=== PATIENT | female | born 1945 | race Caucasian/White ===

== ENCOUNTER 2022-08-05 12:00 | Emergency (ER) | payer OTHER ==
[2022-08-05] MEDS ORDERED: NA CHLORIDE 0.9% 1,000 ML ONE (12:36)
[2022-08-05 12:58] LABS: Absolute Lymphocytes (CBC) 1.3 K/uL (0.7-4.9); Hematocrit 44.4 % (36.0-45.0); MCV 91.1 fL (80-100); MPV 9.1 fL (7.6-11.3); RBC Red Blood Cell Count 4.88 M/uL (3.86-4.86)
[2022-08-05 13:25] LABS: Albumin 3.8 g/dL (3.4-5.0); Bilirubin Total 0.6 mg/dL (0.2-1.0); Magnesium 2.4 mg/dL (1.6-2.4); Potassium 4.4 mmol/L (3.5-5.1); Protein, Total 7.1 g/dL (6.4-8.2); Troponin High Sensitivity 3.3 pg/mL (<58.9)
--- NOTE | 2022-08-05 13:34 | RAD REPORT ---
EXAM DESCRIPTION: CTAbdomen Pelvis W Contrast - 08/05/2022 1:25 pm CLINICAL HISTORY: Abdominal pain. ABD PAIN COMPARISON: No comparisons TECHNIQUE: Biphasic CT imaging of the abdomen and pelvis was performed with 100 ml non-ionic IV cont rast. All CT scans are performed using dose optimization technique as appropriate and may include automated exposure control or mA/KV adjustment according to patient size. FINDINGS: The lung bases are clear.Small hiatal hernia with postsurgical changes present. Mild fatty liver. 19 mm cyst is seen superior hepatic left lobe. No intra or extrahepatic biliary viry e dilatation. The spleen, pancreas and adrenal glands are normal. No solid renal mass or hydronephros is. No bowel obstruction, free air, free fluid or abscess. Nonvisualized appendix. Moderate stool in the colon. No evidence of significant lymphadenopathy. Moderate lumbar degenerative changes. IMPRESSION: No acute intra-abdominal or pelvic finding.
--- NOTE | 2022-08-06 13:04 | EKG ---
Test Date: 2022-08-05 Test Time: 11:52:41 Station Cashier: [place] MEASUREMENT RESULTS: Intervals: Rate: 59 LA: 212 QRSD: 70 QT: 400 QTc: 396 [place]: P: 51 LA: 212 QRS: 8 T: 50 INTERPRETIVE STATEMENTS: Sinus bradycardia with 1st degree AV block Cannot rule out Anterior infarct, age undetermined Abnormal ECG No previous ECG available for comparison Electronically Signed On 08-06-22 13:02:29 CDT by Chao Chavez
--- NOTE | 2022-08-17 17:16 | ER ---
Nurse's Notes [facility] Name: Neelam Grove Age: 76 yrs Sex: Female : 1945 Arrival Date: 08/05/2022 Time: 12:01 Bed 9 Private MD: Diagnosis: Diarrhea, unspecified Presentation: 08/05 12:08 Chief complaint: Patient states: diarrhea on and off since Saturday, have been taking kr3 pepto to help with that, light headed, dizzy and weak, all over body aches and abdominal pain since Saturday. Coronavirus screen: Vaccine status: Patient reports receiving the 2nd dose of the covid vaccine. Ebola Screen: Patient denies travel to an Ebola-affected area in the 21 days before illness onset. Initial Sepsis Screen: Does the patient meet any 2 criteria? No. Patient's initial sepsis screen is negative. Does the patient have a suspected source of infection? No. Patient's initial sepsis screen is negative. Risk Assessment: Do you want to hurt yourself or someone else? Patient reports no desire to harm self or others. Onset of symptoms was July 31, 2022. 12:08 Method Of Arrival: Ambulatory kr3 12:08 Acuity: CHRISTY 3 kr3 Triage Assessment: 12:14 General: Appears in no apparent distress. comfortable, Behavior is calm, cooperative, kr3 appropriate for age. Pain: Complains of pain in abdomen. EENT: No signs and/or symptoms were reported regarding the EENT system. Neuro: Level of Consciousness is awake, alert, obeys commands, Oriented to person, place, time, situation. Cardiovascular: Patient's skin is warm and dry. Respiratory: Airway is patent Respiratory effort is even, unlabored, Respiratory pattern is regular, symmetrical. GI: Abdomen is round non-distended. : No signs and/or symptoms were reported regarding the genitourinary system. Derm: No signs and/or symptoms reported regarding the dermatologic system. Musculoskeletal: No signs and/or symptoms reported regarding the musculoskeletal system. 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 - Social history:: Smoking status: Patient denies any tobacco usage or history of. - Family history:: not pertinent. Screenin:15 [facility] ED Fall Risk Assessment (Adult) History of falling in the last 3 months, kc6 including since admission No falls in past 3 months (0 pts) Confusion or Disorientation No (0 pts) Intoxicated or Sedated No (0 pts) Impaired Gait No (0 pts) Mobility Assist Device Used No (0 pt) Altered Elimination No (0 pt) Score/Fall Risk Level 0 - 2 = Low Risk Oriented to surroundings, Maintained a safe environment, Educated pt \T\ family on fall prevention, incl call for assistance when getting out of bed, Assessed \T\ reinforced patient's understanding of fall precautions, Hourly rounding (assess needs \T\ fall precautionary measures) done. Abuse screen: Denies threats or abuse. Denies injuries from another. Nutritional screening: No deficits noted. Tuberculosis screening: No symptoms or risk factors identified. Assessment: 13:30 Reassessment: Patient appears in no apparent distress at this time. Patient and/or kc6 family updated on plan of care and expected duration. Pain level reassessed. Patient is alert, oriented x 3, equal unlabored respirations, skin warm/dry/pink. Patient denies pain at this time. 13:53 Reassessment: d/c pending fluid completion. kc6 Vital Signs: 12:08 BP 149 / 87; Pulse 68; Resp 17; Temp 98.6; Pulse Ox 98% on R/A; Weight 81.65 kg; Height kr3 5 ft. 4 in. ; 12:08 Body Mass Index 30.90 (81.65 kg, 162.56 cm) kr3 ED Course: 12:01 Patient arrived in ED. am2 12:02 Kit Doll MD is Attending Physician. rt 12:13 Triage completed. kr3 12:15 Arm band placed on right wrist. Patient placed in an exam room, on a stretcher. kr3 12:15 Patient has correct armband on for positive identification. Bed in low position. Call kc6 light in reach. Side rails up X2. 12:26 Dori Flores, MAGALIE is Primary Nurse. kc6 12:50 Magnesium Sent. kc6 12:50 Lipase Sent. kc6 12:50 Troponin High Sensitivity Sent. kc6 12:50 CMP Sent. kc6 12:50 CBC with Diff Sent. kc6 12:50 Inserted saline lock: 20 gauge in right forearm, using aseptic technique. Blood kc6 collected. 13:27 CT Abd/Pelvis - IV Contrast Only In Process Unspecified. EDMS 14:28 No provider procedures requiring assistance completed. IV discontinued, intact, kc6 bleeding controlled, No redness/swelling at site. Pressure dressing applied. Administered Medications: 12:49 Drug: NS 0.9% IV 1000 ml Route: IV; Rate: 1 bolus; Site: right forearm; kc6 14:28 Follow up: Response: No adverse reaction; IV Status: Completed infusion; IV Intake: kc6 1000ml Medication: 14:28 VIS not applicable for this client. kc6 Intake: 14:28 IV: 1000ml; Total: 1000ml. kc6 Outcome: 13:53 Discharge ordered by . rt 14:28 Discharged to home ambulatory. kc6 14:28 Condition: stable 14:28 Discharge instructions given to patient, Instructed on discharge instructions, follow up and referral plans. medication usage, Demonstrated understanding of instructions, follow-up care, medications, Prescriptions given X 2. 14:29 Patient left the ED. kc6 Signatures: Dispatcher [employer] EDMS Lea Barlow am2 Bridgett Echols RN RN kr3 Dori Flores RN RN kc6 Kit Doll MD MD rt
--- NOTE | 2022-08-17 17:16 | EDPHYS ---
Physician Documentation [facility] Name: Neelam Grove Age: 76 yrs Sex: Female : 1945 Arrival Date: 08/05/2022 Time: 12:01 Bed 9 Private MD: ED Physician Kit Doll HPI: 08/05 14:11 This 76 yrs old Female presents to ER via Ambulatory with complaints of Diarrhea, rt bodyaches, General Weakness. 14:11 Patient presents to the ED with diarrhea since Saturday which seems to be easing up. She rt had associated body aches, generalized malaise. The patient reports feeling somewhat dizzy. She reported abdominal cramping but no overt abdominal pain. She had nausea without vomiting. She states that her symptoms had improved yesterday, ever, had worsened today. She denies other acute complaints at this time. Symptoms are moderate in severity, no other aggravating or alleviating factors.. 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 - Social history:: Smoking status: Patient denies any tobacco usage or history of. - Family history:: not pertinent. ROS: 14:11 Cardiovascular: Negative for chest pain, palpitations, and edema, Respiratory: Negative rt for shortness of breath, cough, wheezing, and pleuritic chest pain, Back: Negative for injury and pain, MS/Extremity: Negative for injury and deformity, Skin: Negative for injury, rash, and discoloration, Psych: Negative for depression, anxiety, suicide ideation, homicidal ideation, and hallucinations. 14:11 Constitutional: Positive for body aches, malaise. 14:11 Abdomen/GI: Positive for nausea, diarrhea. 14:11 Neuro: Positive for dizziness, Negative for altered mental status. Exam: 14:11 Constitutional: This is a well developed, well nourished patient who is awake, alert, rt and in no acute distress. Head/Face: Normocephalic, atraumatic. Chest/axilla: Normal chest wall appearance and motion. Nontender with no deformity. No lesions are appreciated. Cardiovascular: Regular rate and rhythm with a normal S1 and S2. No gallops, murmurs, or rubs. Normal PMI, no JVD. No pulse deficits. Respiratory: Lungs have equal breath sounds bilaterally, clear to auscultation and percussion. No rales, rhonchi or wheezes noted. No increased work of breathing, no retractions or nasal flaring. Abdomen/GI: Soft, non-tender, with normal bowel sounds. No distension or tympany. No guarding or rebound. No evidence of tenderness throughout. Skin: Warm, dry with normal turgor. Normal color with no rashes, no lesions, and no evidence of cellulitis. MS/ Extremity: Pulses equal, no cyanosis. Neurovascular intact. Full, normal range of motion. Neuro: Awake and alert, GCS 15, oriented to person, place, time, and situation. Cranial nerves II-XII grossly intact. Motor strength 5/5 in all extremities. Sensory grossly intact. Cerebellar exam normal. Normal gait. Psych: Awake, alert, with orientation to person, place and time. Behavior, mood, and affect are within normal limits. 14:11 ECG was reviewed by the Attending Physician. Vital Signs: 12:08 BP 149 / 87; Pulse 68; Resp 17; Temp 98.6; Pulse Ox 98% on R/A; Weight 81.65 kg; Height kr3 5 ft. 4 in. ; 12:08 Body Mass Index 30.90 (81.65 kg, 162.56 cm) kr3 MDM: 12:29 Patient medically screened. rt 14:11 Differential diagnosis: Colitis, diverticulitis, gastroenteritis, viral syndrome. Data rt reviewed: vital signs, nurses notes, lab test result(s), EKG, radiologic studies. I considered the following discharge prescriptions or medication management in the emergency department Antibiotics: At this time antibiotics are not recommended. Test considered but Not performed: Ultrasound Low suspicion for biliary colic, LFTs normal, ultrasound not indicated. Care significantly affected by the following chronic conditions: GERD with hiatal hernia. Counseling: I had a detailed discussion with the patient and/or guardian regarding: the historical points, exam findings, and any diagnostic results supporting the discharge/admit diagnosis, lab results, radiology results, the need for outpatient follow up, to return to the emergency department if symptoms worsen or persist or if there are any questions or concerns that arise at home. 08/05 12:30 Order name: CBC with Diff; Complete Time: 13:25 rt 08/05 12:30 Order name: CMP; Complete Time: 13:25 rt 08/05 12:30 Order name: Troponin High Sensitivity; Complete Time: 13:25 rt 08/05 12:30 Order name: Lipase; Complete Time: 13:25 rt 08/05 12:30 Order name: Magnesium; Complete Time: 13:25 rt 08/05 12:30 Order name: CT Abd/Pelvis - IV Contrast Only; Complete Time: 13:37 rt 08/05 12:30 Order name: EKG; Complete Time: 12:31 rt 08/05 12:30 Order name: EKG - Nurse/Tech; Complete Time: 12:50 rt EC:11 Rate is 59 beats/min. Rhythm is regular, 1st Degree Block with No ectopy. QRS [place] is rt Normal. ME interval is normal. QRS interval is normal. QT interval is normal. No Q waves. T waves are Normal. No ST changes noted. Administered Medications: 12:49 Drug: NS 0.9% IV 1000 ml Route: IV; Rate: 1 bolus; Site: right forearm; kc6 14:28 Follow up: Response: No adverse reaction; IV Status: Completed infusion; IV Intake: kc6 1000ml Disposition Summary: 08/05/22 13:53 Discharge Ordered Location: Home rt Problem: new rt Symptoms: have improved rt Condition: Stable rt Diagnosis - Diarrhea, unspecified rt Followup: rt - With: Private Physician - When: 2 - 3 days - Reason: Discharge Instructions: - Discharge Summary Sheet rt - Diarrhea, Adult rt Forms: - Medication Reconciliation Form rt - Thank You Letter rt - Antibiotic Education rt - Prescription Opioid Use rt Prescriptions: - ondansetron 4 mg Oral Tablet,disintegrating - take 1 tablet by ORAL route every 6 hours; 18 tablet; Refills: 0, Product rt Selection Permitted - dicyclomine 10 mg Oral Capsule - take 1 capsule by ORAL route every 8 hours; 18 capsule; Refills: 0, Product rt Selection Permitted Signatures: Dispatcher [employer] Bridgett Lake RN RN kr3 Dori Flores RN RN kc6 Kit Doll MD MD rt
== END 2022-08-05 14:29 | disposition home or self-care (01) ==
LOC: ER 12:00
DX: R19.7 Diarrhea, unspecified (principal); R42 Dizziness and giddiness; R11.0 Nausea; R53.81 Other malaise
CPT/HCPCS: 96361; 93005; 85025; 36415; 83735; 82565; 84484; 83690; 80053; 74177; 96360; 99284; Q9967; J7030

== ENCOUNTER 2022-09-22 19:07 | Emergency (ER) | payer OTHER ==
--- NOTE | 2022-09-22 19:42 | EDPHYS ---
Physician Documentation [facility] Name: Neelam Grove Age: 76 yrs Sex: Female : 1945 Arrival Date: 09/22/2022 Time: 19:07 Bed 10 Private MD: ED Physician Korey Sheehan HPI: 09/22 19:30 This 76 yrs old Female presents to ER via Ambulatory with complaints of Ear Pain. cp 19:30 The patient presents with drainage, that is bloody, an injury, pain, that is acute. The cp complaints affect the left ear. Onset: The symptoms/episode began/occurred today. Associated signs and symptoms: The patient has no apparent associated signs or symptoms. Patient reports she used q-tip to clean left ear and concerned that she stuck it into her ear canal too deep. C/o pain and bloody drainage from left ear. 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 - Social history:: Smoking status: Patient denies any tobacco usage or history of. ROS: 19:33 Constitutional: Negative for body aches, chills, fever, poor PO intake. cp 19:33 Eyes: Negative for injury, pain, redness, and discharge. cp 19:33 ENT: Positive for drainage from ear(s), ear pain, Negative for sore throat, dental pain, difficulty swallowing, difficulty handling secretions. 19:33 Respiratory: Negative for cough, shortness of breath, wheezing. 19:33 Abdomen/GI: Negative for abdominal pain, nausea, vomiting, and diarrhea, vomiting, diarrhea, constipation. 19:33 Skin: Negative for rash. 19:33 Neuro: Negative for altered mental status, headache. 19:33 All other systems are negative. Exam: 19:35 Constitutional: The patient appears in no acute distress, alert, awake, well developed, cp well nourished. 19:35 Head/Face: Normocephalic, atraumatic. cp 19:35 Eyes: Periorbital structures: appear normal, Conjunctiva: normal, no exudate, no injection, Lids and lashes: appear normal, bilaterally. 19:35 ENT: External ear(s): pain with movement, is not appreciated, Ear canal(s): bleeding, that is minimal, in the left canal, bloody discharge, in the left canal, mild, TM's: erythema, that is moderate, on the left, rupture, on the left, with bloody discharge, Examination of the other ear shows no obvious abnormality, Nose: is normal, Mouth: Lips: moist, Oral mucosa: pink and intact, moist, Posterior pharynx: is normal, airway is patent, no erythema, no exudate. 19:35 Neck: ROM/movement: is normal, is supple, without pain, no range of motions limitations. 19:35 Chest/axilla: Inspection: normal. 19:35 Cardiovascular: Rate: normal. 19:35 Respiratory: the patient does not display signs of respiratory distress, Respirations: normal, no use of accessory muscles, no retractions. Vital Signs: 19:16 BP 145 / 80; Pulse 70; Resp 18; Temp 98.4(O); Pulse Ox 99% on R/A; Weight 83.91 kg (R); kl Height 5 ft. 4 in. ; Pain 4/10; 19:16 Body Mass Index 31.75 (83.91 kg, 162.56 cm) kl 19:16 Pain Scale: Adult kl MDM: 19:20 Patient medically screened. cp 19:30 Differential diagnosis: otitis media, otitis externa, ruptured TM, foreign body, acute cp otalgia, cerumen impaction, barotrauma , serotympanum. 19:41 Data reviewed: vital signs, nurses notes. cp 19:41 Counseling: I had a detailed discussion with the patient and/or guardian regarding: the cp historical points, exam findings, and any diagnostic results supporting the discharge/admit diagnosis, the need for outpatient follow up, an ENT specialist, to return to the emergency department if symptoms worsen or persist or if there are any questions or concerns that arise at home. Special discussion: recommend use of ear plugs during showering bathing, no swimming and f/u with ENT. Administered Medications: No medications were administered Disposition Summary: 09/22/22 19:42 Discharge Ordered Location: Home cp Problem: new cp Symptoms: are unchanged cp Condition: Stable cp Diagnosis - Unspecified perforation of tympanic membrane, left ear - traumatic(09/22/22 19:45) cp Followup: cp - With: Kellie Gonzalez MD - When: 2 - 3 days - Reason: Recheck today's complaints Discharge Instructions: - Discharge Summary Sheet cp - Eardrum Rupture, Adult cp Forms: - Medication Reconciliation Form cp - Thank You Letter cp - Antibiotic Education cp - Prescription Opioid Use cp Prescriptions: - ofloxacin 0.3 % Otic drops - instill 5 drop by OTIC route once; 1 unit; Refills: 0, Product Selection cp Permitted - Augmentin 875-125 mg Oral Tablet - take 1 tablet by ORAL route every 12 hours for 10 days; 20 tablet; Refills: 0, cp Product Selection Permitted Addendum: 09/24/2022 21:47 Co-signature as Attending Physician, Korey JOHANSEN was immediately available on-site m s3 in the Emergency Department for consultation in the care of the patient. . Signatures: Olga Lin RN RN Jossue Mitchell PA PA Korey Collier DO DO ms3 Corrections: (The following items were deleted from the chart) 09/22 19:45 19:42 Unspecified perforation of tympanic membrane, left ear cp cp 09/23 16:05 09/22 19:25 Differential diagnosis: otitis media, otitis externa, ruptured TM, foreign cp body, acute otalgia, cerumen impaction, barotrauma , serotympanum, cp
--- NOTE | 2022-09-22 19:42 | ER ---
Nurse's Notes [facility] Name: Neelam Grove Age: 76 yrs Sex: Female : 1945 Arrival Date: 09/22/2022 Time: 19:07 Bed 10 Private MD: Diagnosis: Unspecified perforation of tympanic membrane, left ear-traumatic Presentation: 09/22 19:16 Chief complaint: Patient states: left ear pain and bleeding after cleaning ear with Q kl tip at 10 am this morning. Coronavirus screen: Vaccine status: Patient reports receiving the 2nd dose of the covid vaccine. Ebola Screen: Patient negative for fever greater than or equal to 101.5 degrees Fahrenheit, and additional compatible Ebola Virus Disease symptoms. Initial Sepsis Screen: Does the patient meet any 2 criteria? No. Patient's initial sepsis screen is negative. Does the patient have a suspected source of infection? No. Patient's initial sepsis screen is negative. Risk Assessment: Do you want to hurt yourself or someone else? Patient reports no desire to harm self or others. 19:16 Method Of Arrival: Ambulatory 19:16 Acuity: CHRISTY 5 Triage Assessment: 19:19 General: Appears in no apparent distress. comfortable, Behavior is calm, cooperative. kl Pain: Complains of pain in left ear. EENT: Reports pain ringing in left ear. Historical: - Allergies: 19:28 No Known Allergies; kl - Home Meds: 19:18 Requip Oral [Active]; kl - PMHx: 19:18 GERD; high cholesterol; restless leg; - PSHx: 19:18 esophegal longiation; kl - Immunization history:: Adult Immunizations up to date. - Social history:: Smoking status: Patient denies any tobacco usage or history of. Screenin:41 [facility] ED Fall Risk Assessment (Adult) History of falling in the last 3 months, including since admission No falls in past 3 months (0 pts) Confusion or Disorientation No (0 pts) Intoxicated or Sedated No (0 pts) Impaired Gait No (0 pts) Mobility Assist Device Used No (0 pt) Altered Elimination No (0 pt) Score/Fall Risk Level 0 - 2 = Low Risk Oriented to surroundings, Maintained a safe environment. Abuse screen: Denies threats or abuse. Nutritional screening: No deficits noted. Tuberculosis screening: No symptoms or risk factors identified. Assessment: 19:41 General: Appears in no apparent distress. comfortable, Behavior is calm, cooperative. kl Pain: Complains of pain in left ear. Neuro: No deficits noted. Level of Consciousness is awake, alert, obeys commands, Oriented to person, place, time, situation. Cardiovascular: No deficits noted. Respiratory: No deficits noted. Airway is patent Trachea midline Respiratory effort is even, unlabored, Respiratory pattern is regular, symmetrical. GI: No deficits noted. No signs and/or symptoms were reported involving the gastrointestinal system. : No deficits noted. No signs and/or symptoms were reported regarding the genitourinary system. Derm: No deficits noted. No signs and/or symptoms reported regarding the dermatologic system. Vital Signs: 19:16 BP 145 / 80; Pulse 70; Resp 18; Temp 98.4(O); Pulse Ox 99% on R/A; Weight 83.91 kg (R); kl Height 5 ft. 4 in. ; Pain 4/10; 19:16 Body Mass Index 31.75 (83.91 kg, 162.56 cm) 19:16 Pain Scale: Adult ED Course: 19:12 Patient arrived in ED. am2 19:18 Triage completed. 19:18 Joss[facility] Zendejas PA is [facility]. cp 19:19 Korey Sheehan DO is Attending Physician. cp 19:40 Kellie Gonzalez MD is Referral Physician. cp 19:42 Patient has correct armband on for positive identification. Bed in low position. Call light in reach. 19:42 Arm band placed on Patient placed in an exam room, on a stretcher, on pulse oximetry. ll3 19:42 No provider procedures requiring assistance completed. Patient did not have IV access during this emergency room visit. Administered Medications: No medications were administered Medication: 19:42 VIS not applicable for this client. Outcome: 19:42 Discharge ordered by . cp 19:54 Discharged to home ambulatory. ll3 19:54 Condition: stable 19:54 Discharge instructions given to patient, Instructed on discharge instructions, follow up and referral plans. medication usage, Demonstrated understanding of instructions, follow-up care, medications, Prescriptions given X 2. 19:55 Patient left the ED. ll3 Signatures: Olga Lin RN RN kl Page, Corey, PA PA cp Barlow, Lea am2 Rosa M Blas, MAGALIE RN ll3
[2022-09-22 20:00] VITALS: BP 145/80; TEMP 98.4; O2SAT 99
== END 2022-09-22 19:55 | disposition home or self-care (01) ==
LOC: ER 19:07
DX: H72.92 Unspecified perforation of tympanic membrane, left ear (principal)
CPT/HCPCS: 99283

== ENCOUNTER 2022-11-30 18:15 | Emergency (ER) | payer OTHER ==
[2022-11-30] MEDS ORDERED: ACETAMINOPHEN 325 MG TABLET ONE (19:29)
[2022-11-30] MEDS ORDERED: IBUPROFEN 400 MG TAB ONE (19:30)
--- NOTE | 2022-11-30 20:05 | RAD REPORT ---
EXAM DESCRIPTION: RAD - Ankle Right 3 View - 11/30/2022 7:18 pm CLINICAL HISTORY: Pain;Swelling COMPARISON: No comparisons TECHNIQUE: Right ankle, 3 views. FINDINGS: Minimally displaced oblique fracture of the distal fibula. Mild widening of the lateral cl ear space. No dislocation or periosteal reaction. No joint effusion seen. No joint space narrowing. P ronounced soft tissue swelling about the ankle most pronounced laterally and anteriorly. Ovoid densit y overlying the tip of the medial malleolus, may relate to chronic sequelae of trauma. Enthesopathy a t the Achilles tendon attachment and a moderate calcaneal spur incidentally noted. IMPRESSION: Minimally displaced oblique fracture of the distal fibula. Widening of the lateral clear space, raises concern for distal tibiofibular syndesmosis disruption. Please correlate clinically.
--- NOTE | 2022-11-30 20:42 | EDPHYS ---
Physician Documentation [facility] Name: Neelam Grove Age: 77 yrs Sex: Female : 1945 Arrival Date: 11/30/2022 Time: 18:15 Bed External Waiting Private MD: ED Physician John Molina HPI: 11/30 19:05 This 77 yrs old Female presents to ER via Wheelchair with complaints of Ankle Injury. cp 19:05 The patient presents with an injury, pain, that is acute. The complaints affect the cp right ankle. Onset: The symptoms/episode began/occurred today. Context: resulted from a mis-step by the patient, The mechanism of injury involved inversion of the affected ankle. The patient can partially bear weight on the affected extremity. the patient is able to ambulate, with moderate difficulty. Associated signs and symptoms: The patient has no apparent associated signs or symptoms. Modifying factors: the symptoms are aggravated by weight bearing, movement. Severity of symptoms: in the emergency department the symptoms are unchanged, despite home interventions. Historical: - Allergies: 19:41 No Known Allergies; cm10 - Immunization history:: Adult Immunizations up to date. - Social history:: Smoking status: Patient denies any tobacco usage or history of. ROS: 19:10 Constitutional: Negative for body aches, chills, fever, poor PO intake. cp 19:10 Neck: Negative for pain with movement, pain at rest. cp 19:10 Respiratory: Negative for cough, shortness of breath, wheezing. 19:10 Abdomen/GI: Negative for abdominal pain, nausea, vomiting, and diarrhea. 19:10 Back: Negative for pain at rest, pain with movement. 19:10 MS/extremity: Positive for injury or acute deformity, ecchymosis, pain, swelling, tenderness, of the lateral malleolus of left ankle, Negative for paresthesias. 19:10 Neuro: Negative for altered mental status, dizziness, headache, loss of consciousness, syncope, weakness. 19:10 All other systems are negative. Exam: 19:15 Constitutional: The patient appears in no acute distress, alert, awake, non-toxic, well cp developed, well nourished, uncomfortable. 19:15 Head/Face: Normocephalic, atraumatic. cp 19:15 Neck: ROM/movement: is normal, is supple, without pain, no range of motions limitations. 19:15 Chest/axilla: Inspection: normal. 19:15 Cardiovascular: Rate: normal. 19:15 Respiratory: the patient does not display signs of respiratory distress, Respirations: normal, no use of accessory muscles, no retractions, labored breathing, is not present. 19:15 Abdomen/GI: Inspection: abdomen appears normal. 19:15 Back: pain, is absent, ROM is normal. 19:15 Musculoskeletal/extremity: Extremities: grossly normal except: noted in the lateral malleolus of left ankle: moderate swelling, marked tenderness to palpation, mild ecchymosis. Achilles tendon palpated and intact, no pain to palpation noted base of right fifth metatarsal, mild tenderness noted proximal right fibula. Vital Signs: 18:48 BP 119 / 78; Pulse 73; Resp 18; Temp 98; Pulse Ox 99% on R/A; Weight 81.65 kg; os 21:03 Pain 4/10; cm10 21:03 Pain Scale: Adult cm10 Procedures: 21:15 Splinting: Splint applied to left ankle using Orthoglass splint, posterior short leg cp and stirrup. applied by tech. Examined by me, post splint application: neurovascular intact, Patient tolerated well. MDM: 18:55 Patient medically screened. 20:40 Data reviewed: vital signs, nurses notes, radiologic studies, plain films. 20:40 I considered the following discharge prescriptions or medication management in the emergency department Medications were administered in the Emergency Department. See MAR. Independent interpretation of the following test(s) in the Emergency Department X-Ray: My interpretation is images of right ankle show nondisplaced distal fibula fracture. Counseling: I had a detailed discussion with the patient and/or guardian regarding: the historical points, exam findings, and any diagnostic results supporting the discharge/admit diagnosis, radiology results, the need for outpatient follow up, for definitive care, a orthopedic surgeon. Response to treatment: the patient's symptoms have markedly improved after treatment, and as a result, I will discharge patient. 11/30 18:58 Order name: XRAY Ankle RIGHT 3 view; Complete Time: 20:18 11/30 20:18 Interpretation: Report reviewed. 11/30 20:27 Order name: XRAY Tib Fib RIGHT; Complete Time: 21:33 11/30 21:34 Interpretation: Report reviewed. cp 11/30 20:18 Order name: Splint: posterior short leg and stirrup; Complete Time: 21:29 cp 11/30 21:29 Order name: Crutches; Complete Time: 21:29 cm10 Administered Medications: 19:25 Drug: Ibuprofen PO 800 mg Route: PO; cm10 21:03 Follow up: Pain 4/10 Adult; Response: No adverse reaction; Pain is decreased cm10 19:25 Drug: Acetaminophen PO 650 mg Route: PO; cm10 21:03 Follow up: Response: No adverse reaction; Pain is decreased cm10 Disposition Summary: 11/30/22 20:41 Discharge Ordered Location: Home cp Problem: new cp Symptoms: have improved cp Condition: Stable cp Diagnosis - Nondisplaced fracture of lateral malleolus of right fibula cp Followup: cp - With: Gonzalo Honeycutt MD - When: 2 - 3 days - Reason: Recheck today's complaints Discharge Instructions: - Discharge Summary Sheet cp - Nondisplaced Fibular Ankle Fracture Treated With Immobilization cp - How to Use a Walker cp Forms: - Medication Reconciliation Form cp - Thank You Letter cp - Antibiotic Education cp - Prescription Opioid Use cp - [email or web address] cp Prescriptions: - acetaminophen-codeine 300-30 mg Oral tablet - take 2 tablet by ORAL route every 8 hours as needed for pain; 16 tablet; cp Refills: 0, Product Selection Permitted - WALKER - use 1 unit by NOT APPLICABLE route as directed; 1 unit; Refills: 0, Product cp Selection Permitted - Ibuprofen 800 mg Oral Tablet - take 1 tablet by ORAL route every 8 hours As needed take with food; 30 tablet; cp Refills: 0, Product Selection Permitted Addendum: 12/03/2022 10:46 Co-signature as Attending Physician, John Molina MD I reviewed the patient's care r n provided by the Advanced Practice Provider and agree with the diagnosis and treatment plan. Signatures: Dispatcher [employer] John Aguilar MD MD rn Page, Corey, PA PA cp Jez Mathew RN RN os Loretta Saldaña RN RN cm10 Corrections: (The following items were deleted from the chart) 11/30 18:51 18:50 PMHx: GERD; os os 18:51 18:50 PMHx: High Cholesterol; os os 18:51 18:50 PMHx: restless leg; os os 18:51 18:50 PSHx: esophegal longiation; os os
--- NOTE | 2022-11-30 20:42 | ER ---
Nurse's Notes [facility] Name: Neelam Grove Age: 77 yrs Sex: Female : 1945 Arrival Date: 11/30/2022 Time: 18:15 Bed External Waiting [facility] MD: Diagnosis: Nondisplaced fracture of lateral malleolus of right fibula Presentation: 11/30 18:48 Chief complaint: Patient states: Right ankle pain after falling on the marble floor. os Coronavirus screen: At this time, the client does not indicate any symptoms associated with coronavirus-19. Coronavirus screen: Vaccine status: Patient reports receiving the 2nd dose of the covid vaccine. na. Ebola Screen: No symptoms or risks identified at this time. Initial Sepsis Screen: Does the patient meet any 2 criteria? No. Patient's initial sepsis screen is negative. Does the patient have a suspected source of infection? No. Patient's initial sepsis screen is negative. Risk Assessment: Do you want to hurt yourself or someone else? Patient reports no desire to harm self or others. Onset of symptoms was November 30, 2022. 18:48 Method Of Arrival: Wheelchair os 18:48 Acuity: CHRISTY 4 os Triage Assessment: 18:51 General: Appears uncomfortable, Behavior is calm, cooperative, appropriate for age. os Pain: Complains of pain in left leg. Neuro: No deficits noted. Cardiovascular: No deficits noted. Respiratory: No deficits noted. Musculoskeletal: Bony deformity noted of left Achilles. Historical: - Allergies: 19:41 No Known Allergies; cm10 - Immunization history:: Adult Immunizations up to date. - Social history:: Smoking status: Patient denies any tobacco usage or history of. Screenin:43 [facility] ED Fall Risk Assessment (Adult) History of falling in the last 3 months, cm10 including since admission Yes- single mechanical fall (1 pt) Confusion or Disorientation No (0 pts) Intoxicated or Sedated No (0 pts) Impaired Gait Yes (1 pt) Mobility Assist Device Used Yes (1 pt) Altered Elimination No (0 pt) Score/Fall Risk Level 3 or more points = High Risk Oriented to surroundings, Maintained a safe environment, Hourly rounding (assess needs \T\ fall precautionary measures) done, Used ambulatory aids as needed (educated on \T\ assisted with). Abuse screen: Denies threats or abuse. Denies injuries from another. Nutritional screening: No deficits noted. Tuberculosis screening: No symptoms or risk factors identified. Assessment: 19:43 General: Appears in no apparent distress. comfortable, Behavior is calm, cooperative. cm10 Pain: Complains of pain in left Achilles and left leg. Neuro: No deficits noted. Level of Consciousness is awake, alert, obeys commands, Oriented to person, place, time, situation. Respiratory: No deficits noted. Airway is patent Respiratory effort is even, unlabored, Respiratory pattern is regular, symmetrical. Musculoskeletal: Swelling present in left Achilles and left leg Reports pain in left Achilles and left leg. Injury Description: Fall. Vital Signs: 18:48 BP 119 / 78; Pulse 73; Resp 18; Temp 98; Pulse Ox 99% on R/A; Weight 81.65 kg; os 21:03 Pain 4/10; cm10 21:03 Pain Scale: Adult cm10 ED Course: 18:16 Patient arrived in ED. am2 18:33 Jossue Zendejas PA is PHCP. cp 18:33 John Molina MD is Attending Physician. cp 18:50 Triage completed. os 19:17 Loretta Saldaña, RN is Primary Nurse. cm10 19:20 XRAY Ankle RIGHT 3 view In Process Unspecified. EDMS 19:44 Allergy band placed. Bed in low position. Call light in reach. Cardiac monitoring not cm10 applicable on this patient. Door closed. Noise minimized. Ice pack to injury. 19:44 Arm band placed on Patient placed in an exam room, on a stretcher. cm10 20:39 Gonzalo Honeycutt MD is Referral Physician. cp 20:50 XRAY Tib Fib RIGHT In Process Unspecified. EDMS 21:21 Orthoglass splint: Posterior short lleg splint applied on stirrup splint applied on oe right leg. Administered Medications: 19:25 Drug: Ibuprofen PO 800 mg Route: PO; cm10 21:03 Follow up: Pain 4/10 Adult; Response: No adverse reaction; Pain is decreased cm10 19:25 Drug: Acetaminophen PO 650 mg Route: PO; cm10 21:03 Follow up: Response: No adverse reaction; Pain is decreased cm10 Outcome: 20:41 Discharge ordered by . cp 21:41 Patient left the ED. kl Signatures: Dispatcher [employer] EDMS Olga Lin, RN RN Jossue Mitchell PA PA cp Espinosa, Orlando oe Moreno, Amanda am2 Jez Mathew RN RN os Loretta Saldaña RN RN cm10 Corrections: (The following items were deleted from the chart) 18:51 18:50 PMHx: GERD; os os 18:51 18:50 PMHx: High Cholesterol; os os 18:51 18:50 PMHx: restless leg; os os 18:51 18:50 PSHx: esophegal longiation; os os
--- NOTE | 2022-11-30 21:23 | RAD REPORT ---
EXAM DESCRIPTION: RAD - Tib Fib Right - 11/30/2022 8:48 pm CLINICAL HISTORY: PAIN COMPARISON: Ankle radiographs of earlier same day TECHNIQUE: Right tibia and fibula, 2 views. FINDINGS: Distal fibular fracture was more conspicuous on the prior ankle radiographs. No other acut e fractures. Soft tissue swelling about the ankle. Mild degenerative changes along the weight-bearing compartments of the knee. There is no dislocation or periosteal reaction noted. No other acute or tejada spicious bony finding. No foreign body or other soft tissue abnormality. IMPRESSION: Distal fibular fracture, was more conspicuous on the prior right ankle radiographs. No o ther acute findings.
[2022-11-30 22:20] VITALS: BP 119/78; TEMP 98; O2SAT 99
== END 2022-11-30 21:41 | disposition home or self-care (01) ==
LOC: ER 18:15
PROC: 2W3SX1Z Immobilization of Right Foot using Splint (ICD-10-PCS; principal; 2022-11-30)
DX: S82.64XA Nondisplaced fracture of lateral malleolus of right fibula, initial encounter for closed fracture (principal)
CPT/HCPCS: 99283

== ENCOUNTER → 2023-06-07 | Emergency (ER) | payer OTHER ==
[~2023-06-07] MED LIST: ACETAMINOPHEN 500 MG TAB ONE; TDAP (DIPHTH,PERTUSS(ACELL),TET VAC) 0.5 ML VIAL IMVAC ONE
--- NOTE | 2023-06-07 11:14 | RAD REPORT ---
EXAM DESCRIPTION: CT - [id number] - 06/07/2023 11:00 am CLINICAL HISTORY: Trauma, head and neck injury. TRAUMA COMPARISON: No comparisons TECHNIQUE: Axial 5 mm thick images of the head were obtained. Axial 2 mm thick images of the cervical spine were obtained with sagittal and coronal reconstruction images generated and reviewed. All CT scans are performed using dose optimization technique as appropriate and may include automated exposure control or mA/KV adjustment according to patient size. FINDINGS: CT HEAD WITHOUT CONTRAST: No acute hemorrhage, hydrocephalus or extra-axial collection is identified.No areas of brain edema or midline shift. ICA calcifications. The paranasal sinuses and mastoids are clear.The calvarium is intact. CT CERVICAL SPINE WITHOUT CONTRAST: No fracture or subluxation.No prevertebral soft tissues swelling is identified. Multilevel degenerati ve changes are present in the spine. Varying degrees of neural foraminal narrowing noted. IMPRESSION: No acute intracranial or cervical spine findings.
--- NOTE | 2023-06-07 11:19 | RAD REPORT ---
EXAM DESCRIPTION: RAD - Hand Right 3 View - 06/07/2023 11:10 am CLINICAL HISTORY: PAIN COMPARISON: Wrist Right 3 View dated 06/07/2023 FINDINGS/IMPRESSION: No acute fracture of the right hand. Radial styloid fracture as noted on the de dicated wrist radiograph. Resection of the trapezium. Degenerative changes at the carpus. Mild interp halangeal joint space narrowing. Radiocarpal joint space narrowing. .
--- NOTE | 2023-06-07 11:20 | RAD REPORT ---
EXAM DESCRIPTION: RAD - Wrist Right 3 View - 06/07/2023 11:10 am CLINICAL HISTORY: PAIN COMPARISON: No comparisons FINDINGS/IMPRESSION: Minimally displaced radial styloid fracture. No other fractures appreciated. No wrist dislocation.
--- NOTE | 2023-06-07 12:26 | EDPHYS ---
Physician Documentation [facility] Name: Neelam Grove Age: 77 yrs Sex: Female : 1945 Arrival Date: 06/07/2023 Time: 10:19 Bed 17 Private MD: Hedy Arreola ED Physician Ryan Inman HPI: 06/07 10:48 This 77 yrs old Female presents to ER via Ambulatory with complaints of Fall ec2 Injury, Head Injury-Adult, Hand Injury. 10:48 Patient arrives today for evaluation after head injury. States that she was walking ec2 subsequently tripped over a raised edge, subsequently fell hit her right wrist and right head. Patient reports no LOC, no blood thinners, no neck pain. Denies prodromal symptoms.. Historical: - Allergies: 10:46 No Known Allergies; hb - Immunization history:: Adult Immunizations up to date. - Social history:: Smoking status: Patient denies any tobacco usage or history of. - Immunization history: Last tetanus immunization: unknown. ROS: 10:48 Constitutional: as per hpi ec2 Exam: 10:48 Constitutional: GEN: No acute distress HEENT: -Head: Contusion to the right ec2 forehead -Eyes: EOMI CV: regular rate LUNGS: no respiratory distress ABD: non-tender SKIN: Abrasions noted to the bilateral hands MSK: No C/T/L spine deformities RUE TTP to the wrist and metacarpals LUE w/o bony deformity RLE w/o bony deformity LLE w/o bony deformity NEURO: moves all extremities equally, GCS 15 (E4, V5, M6) Vital Signs: 10:44 BP 129 / 84; Pulse 67; Resp 16; Temp 97.9(TE); Pulse Ox 100% on R/A; Weight 85.73 kg; hb Height 5 ft. 4 in. ; Pain 7/10; 12:00 BP 150 / 86; Pulse 59; Resp 14; Pulse Ox 100% on R/A; me1 12:00 BP 147 / 83; Pulse 55; Resp 16; Pulse Ox 99% on R/A; me1 13:58 BP 143 / 76; Pulse 61; Resp 16; Pulse Ox 98% on R/A; me1 10:44 Body Mass Index 32.44 (85.73 kg, 162.56 cm) hb 10:44 Pain Scale: Adult hb Nithya Coma Score: 12:31 Eye Response: spontaneous(4). Motor Response: obeys commands(6). Verbal Response: me1 oriented(5). Total: 15. Trauma Score (Adult): 12:31 Eye Response: spontaneous(1); Verbal Response: oriented(1); Motor Response: obeys me1 commands(2); Systolic BP: > 89 mm Hg(4); Respiratory Rate: 10 to 29 per min(4); Nithya Score: 15; Trauma Score: 12 MDM: 10:40 Patient medically screened. ec2 10:48 Data reviewed: vital signs. ED course: Patient arrives today for evaluation after ec2 ground-level fall. Examination remarkable for well-appearing nontoxic individual is otherwise in no acute distress with a reassuring examination. Will obtain x-ray of the right hand and wrist, CT imaging of the head and C-spine. Currently considering C-spine fracture, intracranial brain bleed, wrist fracture. Will update the patient's tetanus status as she is unsure of her last tetanus shot.. 12:23 ED course: CT scan of the head and C-spine showed no acute traumatic process. Right ec2 hand x-ray with no bony fracture noted, wrist x-ray shows minimally displaced styloid fracture of the radius. Will place patient in a splint and discharged and have her follow-up with the orthopedic surgeon. Return precautions given. . 06/07 10:48 Order name: CT Head C Spine; Complete Time: 12:23 ec2 06/07 10:48 Order name: Hand Right 3 View XRAY; Complete Time: 12:23 ec2 06/07 10:48 Order name: Wrist Right 3 View XRAY; Complete Time: 12:23 ec2 06/07 12:24 Order name: Splint - Sugar Tong - Forearm; Complete Time: 13:58 ec2 Administered Medications: 12:22 Drug: Boostrix Tdap IM 0.5 ml IM once; as a single dose {Note: LOT: [id number] [place]: [facility] [place] 10[place]16[place]24.} Route: IM; Site: right deltoid; 12:27 Follow up: Response: No adverse reaction [facility] [place] 12:22 Drug: Acetaminophen PO 1000 mg PO once Route: PO; me1 13:03 Follow up: Response: No adverse reaction; Pain is decreased me1 Disposition Summary: 06/07/23 12:25 Discharge Ordered Notes: Location: Home ec2 Condition: Stable ec2 Diagnosis - Nondisplaced fracture of right radial styloid process, initial encounter for closed ec2 fracture Followup: ec2 - With: Willem Feliciano MD - When: - Reason: Recheck today's complaints Discharge Instructions: - Discharge Summary Sheet ec2 - Wrist Fracture Treated With Immobilization, Zvqm-[id number] ec2 Forms: - Medication Reconciliation Form ec2 - Thank You Letter ec2 - Antibiotic Education ec2 - Prescription Opioid Use ec2 - Patient Portal Instructions ec2 - Leadership Thank You Letter ec2 Prescriptions: - acetaminophen-codeine 300-15 mg Oral tablet - take 1 tablet ORAL route every 8 hours; 15 tablet; Refills: 0, Product ec2 Selection Permitted Signatures: Dispatcher [employer] Darlin Poon RN RN Carlyn Viramontes RN RN me1 Ryan Inman MD MD ec2 Corrections: (The following items were deleted from the chart) 11:34 11:34 Patient medically screened. ec2 ec2
--- NOTE | 2023-06-07 12:26 | ER ---
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 Negative LOC. Not on blood thinners. Abrasion noted to right forehead and right palm. Coronavirus screen: At this time, the client does not indicate any symptoms associated with coronavirus-19. Ebola Screen: No symptoms or risks identified at this time. Initial Sepsis Screen: Does the patient meet any 2 criteria? No. Patient's initial sepsis screen is negative. Does the patient have a suspected source of infection? No. Patient's initial sepsis screen is negative. Risk Assessment: Do you want to hurt yourself or someone else? Patient reports no desire to harm self or others. Onset of symptoms was June 07, 2023. 10:44 Method Of Arrival: Ambulatory hb 10:44 Acuity: CHRISTY 4 hb 14:03 Care prior to arrival: None. Mechanism of Injury: Fall from standing position. 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 Historical: - Allergies: 10:46 No Known Allergies; hb - Immunization history:: Adult Immunizations up to date. - Social history:: Smoking status: Patient denies any tobacco usage or history of. - Immunization history: Last tetanus immunization: unknown. Screenin:31 [facility] ED Fall Risk Assessment (Adult) History of falling in the last 3 months, me1 including since admission Yes- single mechanical fall (1 pt) Confusion or Disorientation No (0 pts) Intoxicated or Sedated No (0 pts) Impaired Gait No (0 pts) Mobility Assist Device Used No (0 pt) Altered Elimination No (0 pt) Score/Fall Risk Level 0 - 2 = Low Risk Maintained a safe environment, Provided non-skid footwear, Hourly rounding (assess needs \T\ fall precautionary measures) done. Abuse screen: Denies threats or abuse. Nutritional screening: No deficits noted. Tuberculosis screening: No symptoms or risk factors identified. Primary Survey: 12:31 NO uncontrolled hemorrhage observed. A: The client is awake and alert. The airway is me1 patent. The client is alert. Airway: patent, No supplemental oxygen in use on arrival. Oral cavity: clear, Trachea midline. Breathing/Chest: Spontaneous respiratory effort, equal unlabored respirations, breath sounds clear bilaterally, regular pattern, symmetrical chest rise and fall. Respiratory effort: spontaneous, unlabored, Breath sounds: clear, bilaterally. Circulation: No external hemorrhage present. Regular and strong central pulse, skin warm/dry/normal color. Skin color: pink, Skin temperature: warm, dry, Heart tones present. Disability Pupils are equal, round, reactive to light and accommodation. Exposure/Environment: There is no evidence of uncontrolled external bleeding. A warming method has been applied: A warm blanket has been provided to the patient. 14:03 Reassessment Alertness and Airway: Awake and alert. The airway is patent. Airway Patent me1 Oxygen No O2 Oral cavity Clear Trachea Midline Breathing: Circulation: No external hemorrhage noted. Regular and strong central pulse, skin warm/dry/normal color. Disability: Pupils Pupils are equal, round, reactive to light and accomodation. 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 Negative LOC. Not on blood thinners. Abrasion noted to right forehead and right palm. Pain: Complains of pain in dorsal aspect of right forearm Pain does not radiate. Pain currently is 6 out of 10 on a pain scale. Quality of pain is described as sharp, Pain began suddenly, Is continuous. Neuro: Level of Consciousness is awake, alert, obeys commands, Oriented to person, place, time, situation, Appropriate for age. Cardiovascular: Capillary refill < 3 seconds Patient's skin is warm and dry. Respiratory: Airway is patent Respiratory effort is even, unlabored, Respiratory pattern is regular, symmetrical. Derm: Wound noted right orbital/temporal area and right wrist/hand. 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 Negative LOC. Not on blood thinners. Abrasion noted to right forehead and right palm. Vital Signs: 10:44 BP 129 / 84; Pulse 67; Resp 16; Temp 97.9(TE); Pulse Ox 100% on R/A; Weight 85.73 kg; hb Height 5 ft. 4 in. ; Pain 7/10; 12:00 BP 150 / 86; Pulse 59; Resp 14; Pulse Ox 100% on R/A; me1 12:00 BP 147 / 83; Pulse 55; Resp 16; Pulse Ox 99% on R/A; me1 13:58 BP 143 / 76; Pulse 61; Resp 16; Pulse Ox 98% on R/A; me1 10:44 Body Mass Index 32.44 (85.73 kg, 162.56 cm) hb 10:44 Pain Scale: Adult hb Nithya Coma Score: 12:31 Eye Response: spontaneous(4). Motor Response: obeys commands(6). Verbal Response: me1 oriented(5). Total: 15. Trauma Score (Adult): 12:31 Eye Response: spontaneous(1); Verbal Response: oriented(1); Motor Response: obeys me1 commands(2); Systolic BP: > 89 mm Hg(4); Respiratory Rate: 10 to 29 per min(4); Nithya Score: 15; Trauma Score: 12 ED Course: 10:21 Patient arrived in ED. mr 10:21 Hedy Arreola is Private Physician. mr 10:29 Ryan Inman MD is Attending Physician. ec2 10:46 Triage completed. hb 10:47 Arm band placed on. hb 10:59 CT Head C Spine In Process Unspecified. EDMS 11:12 Hand Right 3 View XRAY In Process Unspecified. EDMS 11:12 Wrist Right 3 View XRAY In Process Unspecified. EDMS 12:11 Carlyn Viramontes, MAGALIE is Primary Nurse. me1 12:25 Willem Feliciano MD is Referral Physician. ec2 12:31 Allergy band placed. Bed in low position. Call light in reach. Provided Education on: me1 POC. Verbalized understanding. . 12:31 No provider procedures requiring assistance completed. Patient did not have IV access me1 during this emergency room visit. 12:31 Patient maintains SpO2 saturation greater than 95% on room air. me1 Administered Medications: 12:22 Drug: Boostrix Tdap IM 0.5 ml IM once; as a single dose {Note: LOT: [id number] expires: me1 10/16/24.} Route: IM; Site: right deltoid; 12:27 Follow up: Response: No adverse reaction me1 12:22 Drug: Acetaminophen PO 1000 mg PO once Route: PO; me1 13:03 Follow up: Response: No adverse reaction; Pain is decreased me1 Medication: 12:31 VIS not applicable for this client. me1 Outcome: 12:25 Discharge ordered by . ec2 14:04 Patient left the ED. 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 Negative LOC. Not on blood thinners. Abrasion noted to right forehead and right palm. hb
[2023-06-07 17:24] VITALS: BP 143/76; TEMP 97.9; O2SAT 98
== END ==
LOC: ER 10:19
PROC: 2W3CX1Z Immobilization of Right Lower Arm using Splint (ICD-10-PCS; principal; 2023-06-07)
DX: S52.514A Nondisplaced fracture of right radial styloid process, initial encounter for closed fracture (principal); W01.0XXA Fall on same level from slipping, tripping and stumbling without subsequent striking against object, initial encounter
CPT/HCPCS: 70450; 72125; 96372; 99284

== ENCOUNTER 2024-03-16 21:47 | Emergency (ER) | payer OTHER ==
--- NOTE | 2024-03-16 22:30 | RAD REPORT ---
Exam:Hand Left 3 View CLINICAL HISTORY: Left hand pain FINDINGS: No fracture or dislocation seen
--- NOTE | 2024-03-16 23:44 | RAD REPORT ---
EXAM: CT Head and Cervical Spine Without Intravenous Contrast CLINICAL HISTORY: The patient is 78 years old and is Female; TRAUMA TECHNIQUE: Axial computed tomography images of the head/brain and cervical spine without intravenous contrast. Sagittal and coronal reformatted images were created and reviewed. This CT exam was performed using one or more of the following dose reduction techniques: automated exposure control, adjustmen t of the mA and/or kV according to patient size, and/or use of iterative reconstruction technique. COMPARISON: No relevant prior studies available. FINDINGS: BRAIN: Unremarkable. No hemorrhage. No significant white matter disease. No edema. VENTRICLES: Unremarkable. No ventriculomegaly. SKULL: No acute fracture. SINUSES: Unremarkable as visualized. No acute sinusitis. MASTOID AIR CELLS: Unremarkable as visualized. No mastoid effusion. VERTEBRAE: The vertebral body heights and alignment are maintained. No acute fracture. DISCS/SPINAL CANAL/NEURAL FORAMINA: There is multi-level intervertebral disc height loss. There a re disc-osteophyte complexes at several levels, with associated mild spinal canal narrowing. There is also facet hypertrophy and uncovertebral joint osteophytosis, with associated multilevel neural fo raminal narrowing. SOFT TISSUES: The soft tissues are normal. LUNG APICES: The lung apices are clear. IMPRESSION: 1. No acute intracranial findings. 2. Spondylosis of the cervical spine without acute findings. Electronically signed by: Meeta Martell MD 03/16/2024 11:09 PM CDT RP Due to temporary technical issues with the PACS/[employer] reporting system, reports are being barron d by the in-house radiologist without review as a courtesy to ensure prompt reporting the interpreting radiologist is fully responsible for the content of the report. Transcribed Date/Time: 03/16/2024 11:44 PM
--- NOTE | 2024-03-17 00:12 | EDPHYS ---
Physician Documentation [facility] Name: Neelam Grove Age: 78 yrs Sex: Female : 1945 Arrival Date: 03/16/2024 Time: 21:47 Bed 18 Private MD: ED Physician Paul Carmichael HPI: 03/17 00:13 This 78 yrs old Female presents to ER via Ambulatory with complaints of Fall Injury. kb 00:13 Pt is a 78 year old female who tripped backwards over the plate corrector door and hit the back of her head on the cabinet. States she hit her left hand as well. 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 Denies loc. Historical: - Allergies: 03/16 22:30 No Known Allergies; rg5 - Immunization history: Last tetanus immunization: - up to date. - Infectious Disease History:: Denies. - Social history:: Smoking status: Patient denies any tobacco usage or history of. ROS: 03/17 00:13 Constitutional: As per HPI kb Exam: 00:13 Constitutional: This is a well developed, well nourished patient who is awake, alert, kb and in no acute distress. Head/Face: Normocephalic, atraumatic. Eyes: Pupils equal round and reactive to light, extra-ocular motions intact. Lids and lashes normal. Conjunctiva and sclera are non-icteric and not injected. Cornea within normal limits. Periorbital areas with no swelling, redness, or edema. ENT: Moist Mucous membranes Neck: Trachea midline and no cervical lymphadenopathy. Supple, full range of motion without nuchal rigidity, or vertebral point tenderness. No Meningismus. Chest/axilla: Normal chest wall appearance and motion. Cardiovascular: Regular rate Respiratory: Respirations even and unlabored. No increased work of breathing. Talking in full sentences Abdomen/GI: Soft, non-tender. No distention Skin: Warm, dry with normal turgor. Normal color. MS/ Extremity: Pulses equal, no cyanosis. Neurovascular intact. Full, normal range of motion. Neuro: Awake and alert, GCS 15, oriented to person, place, time, and situation. Vital Signs: 03/16 22:10 BP 120 / 68; Pulse 66; Resp 17; Temp 98(O); Pulse Ox 96% on R/A; Weight 80.29 kg; rg5 Height 5 ft. 4 in. ; Pain 7/10; 23:26 BP 118 / 66; Pulse 68; Resp 17; Pulse Ox 99% on R/A; rg5 03/17 00:06 BP 125 / 75; Pulse 65; Resp 17; Pulse Ox 95% on R/A; rg5 03/16 22:10 Body Mass Index 30.38 (80.29 kg, 162.56 cm) rg5 03/16 22:10 Pain Scale: Adult rg5 Jackson Coma Score: 03/16 22:10 Eye Response: spontaneous(4). Motor Response: obeys commands(6). Verbal Response: rg5 oriented(5). Total: 15. 03/17 00:07 Eye Response: spontaneous(4). Motor Response: obeys commands(6). Verbal Response: rg5 oriented(5). Total: 15. Trauma Score (Adult): 03/16 22:10 Eye Response: spontaneous(1); Verbal Response: oriented(1); Motor Response: obeys rg5 commands(2); Systolic BP: > 89 mm Hg(4); Respiratory Rate: 10 to 29 per min(4); Jackson Score: 15; Trauma Score: 12 MDM: 21:58 Medical Screening Exam initiated kb 03/17 00:13 Differential diagnosis: closed head injury, contusion, fracture. Data reviewed: vital kb signs, nurses notes. Counseling: I had a detailed discussion with the patient and/or guardian regarding the historical points, exam findings, and any diagnostic results supporting the discharge/admit diagnosis, radiology results, the need for outpatient follow up, a family practitioner, to return to the emergency department if symptoms worsen or persist or if there are any questions or concerns that arise at home. 03/16 22:16 Order name: CT Head C Spine 03/16 22:16 Order name: Hand Left 3 View XRAY; Complete Time: 22:30 kb Administered Medications: No medications were administered Disposition: 04:56 Co-signature as Attending Physician, Paul Carmichael MD I agree with the assessment sp4 and plan of care. I reviewed the patient's care provided by the Advanced Practice Provider and agree with the diagnosis and treatment plan. Disposition Summary: 03/17/24 00:12 Discharge Ordered Notes: Location: Home kb Condition: Stable kb Diagnosis - Fall on same level, unspecified kb - Pain in left hand kb - Unspecified injury of head, initial encounter kb Followup: kb - With: Emergency Department - When: As needed - Reason: Worsening of condition Followup: kb - With: Private Physician - When: 2 - 3 days - Reason: Recheck today's complaints, Continuance of care, Re-evaluation by your physician Discharge Instructions: - Discharge Summary Sheet kb - Musculoskeletal Pain kb - Head Injury, Adult, [id number] kb Forms: - Medication Reconciliation Form kb - Antibiotic Education kb - Prescription Opioid Use kb - Patient Portal Instructions kb - Leadership Thank You Letter kb Signatures: Dispatcher [employer] EDMS Shelly Ansari, PLAY READER-C PLAY READER-Paul Velasco MD MD sp4 Austin Regan RN RN rg5 Corrections: (The following items were deleted from the chart) 03/16 22:17 22:17 Hand Left 3 View+RAD.RAD.BRZ ordered. EDOH EDOH
--- NOTE | 2024-03-17 00:12 | ER ---
Nurse's Notes [facility] Name: Neelam Grove Age: 78 yrs Sex: Female : 1945 Arrival Date: 03/16/2024 Time: 21:47 Bed 18 Private MD: Diagnosis: Fall on same level, unspecified;Pain in left hand;Unspecified injury of head, initial encounter Presentation: 03/16 22:10 Chief complaint: Patient states: she was in the kitchen cleaning, forgot that the rg5 poacher operator is open, tripped \T\ fall backwards hit her head on the cabinet around 1930 tonight. complaint of pain in the back and head. 22:10 Care prior to arrival: None. Mechanism of Injury: Fall from standing position. Trauma rg5 event details: Injury occurred: at home. Injury occurred: March 16, 2024 Injury occurred at: 19:30. 22:10 Acuity: CHRISTY 3 rg5 22:10 Method Of Arrival: Ambulatory rg5 23:28 Coronavirus screen: Client denies travel out of the [place] in the last 14 days. Ebola rg5 Screen: Patient negative for fever greater than or equal to 101.5 degrees Fahrenheit, and additional compatible Ebola Virus Disease symptoms. Initial Sepsis Screen: Does the patient meet any 2 criteria? No. Patient's initial sepsis screen is negative. Does the patient have a suspected source of infection? No. Patient's initial sepsis screen is negative. Risk Assessment: Do you want to hurt yourself or someone else?. Onset of symptoms was March 16, 2024. Historical: - Allergies: 22:30 No Known Allergies; rg5 - Immunization history: Last tetanus immunization: - up to date. - Infectious Disease History:: Denies. - Social history:: Smoking status: Patient denies any tobacco usage or history of. Screenin:10 Abuse screen: Denies threats or abuse. Tuberculosis screening: No symptoms or risk rg5 factors identified. 22:30 [facility] ED Fall Risk Assessment (Adult) History of falling in the last 3 months, rg5 including since admission Yes- single mechanical fall (1 pt) Confusion or Disorientation No (0 pts) Intoxicated or Sedated No (0 pts) Impaired Gait No (0 pts) Mobility Assist Device Used No (0 pt) Altered Elimination No (0 pt) Score/Fall Risk Level 0 - 2 = Low Risk Oriented to surroundings, Maintained a safe environment, Hourly rounding (assess needs \T\ fall precautionary measures) done. Nutritional screening: No deficits noted. Primary Survey: 22:10 NO uncontrolled hemorrhage observed. A: The client is awake and alert. The airway is rg5 patent. Breathing/Chest: Spontaneous respiratory effort, equal unlabored respirations, breath sounds clear bilaterally, regular pattern, symmetrical chest rise and fall. Circulation: No external hemorrhage present. Regular and strong central pulse, skin warm/dry/normal color. Disability Pupils are equal, round, reactive to light and accommodation. Client is alert. Exposure/Environment: All clothing and personal items were removed. Forensic evidence collection is not deemed to be indicated at this time. Items placed in patient belonging bag. There is no evidence of uncontrolled external bleeding. 23:27 Reassessment Alertness and Airway: Awake and alert. The airway is patent. Breathing: rg5 Spontaneous respiratory effort, equal unlabored respirations, breath sounds clear bilaterally, regular pattern with symmetrical chest rise and fall. Reassessment Circulation: No external hemorrhage noted. Regular and strong central pulse, skin warm/dry/normal color. Disability: Pupils Pupils are equal, round, reactive to light and accomodation. Alert. Assessment: 22:10 General: Appears in no apparent distress. Behavior is calm, cooperative, appropriate rg5 for age. Pain: Complains of pain in head and back Pain currently is 7 out of 10 on a pain scale. Quality of pain is described as aching, Pain began 3 hours ago. Neuro: Level of Consciousness is awake, alert, obeys commands, Oriented to person, place, time. EENT: No deficits noted. Cardiovascular: Heart tones S1 S2 Capillary refill < 3 seconds Patient's skin is warm and dry. Respiratory: Airway is patent Trachea midline Respiratory effort is even, Respiratory pattern is regular, symmetrical. GI: Abdomen is round non-distended, Bowel sounds present X 4 quads. Abd is soft and non tender. : No signs and/or symptoms were reported regarding the genitourinary system. Derm: Skin is intact, Skin is dry, Skin is normal, Skin temperature is warm. Musculoskeletal: Circulation, motion, and sensation intact. Range of motion: intact in all extremities. 23:26 Reassessment: No changes from previously documented assessment. Patient and/or family rg5 updated on plan of care and expected duration. Pain level reassessed. Patient is alert, oriented x 3, equal unlabored respirations, skin warm/dry/pink. 03/17 00:07 Reassessment: Patient and/or family updated on plan of care and expected duration. Pain rg5 level reassessed. Patient is alert, oriented x 3, equal unlabored respirations, skin warm/dry/pink. Vital Signs: 03/16 22:10 BP 120 / 68; Pulse 66; Resp 17; Temp 98(O); Pulse Ox 96% on R/A; Weight 80.29 kg; rg5 Height 5 ft. 4 in. ; Pain 7/10; 23:26 BP 118 / 66; Pulse 68; Resp 17; Pulse Ox 99% on R/A; rg5 03/17 00:06 BP 125 / 75; Pulse 65; Resp 17; Pulse Ox 95% on R/A; rg5 03/16 22:10 Body Mass Index 30.38 (80.29 kg, 162.56 cm) rg5 03/16 22:10 Pain Scale: Adult rg5 [place] Coma Score: 03/16 22:10 Eye Response: spontaneous(4). Motor Response: obeys commands(6). Verbal Response: rg5 oriented(5). Total: 15. 03/17 00:07 Eye Response: spontaneous(4). Motor Response: obeys commands(6). Verbal Response: rg5 oriented(5). Total: 15. Trauma Score (Adult): 03/16 22:10 Eye Response: spontaneous(1); Verbal Response: oriented(1); Motor Response: obeys rg5 commands(2); Systolic BP: > 89 mm Hg(4); Respiratory Rate: 10 to 29 per min(4); Nithya Score: 15; Trauma Score: 12 ED Course: 21:52 Patient arrived in ED. gm2 21:58 [facility]ly [facility]-C [facility]. kb 21:58 Paul Carmichael MD is Attending Physician. kb 22:09 Arm band placed on. rg5 22:10 Patient has correct armband on for positive identification. Call light in reach. Side rg5 rails up X 1. 22:10 Patient maintains SpO2 saturation greater than 95% on room air. rg5 22:10 Thermoregulation: warm blanket given to patient. rg5 22:12 Austin Regan, RN is Primary Nurse. rg5 22:24 Hand Left 3 View XRAY In Process Unspecified. EDMS 22:25 Triage completed. rg5 22:30 Door closed. Noise minimized. Warm blanket given. rg5 22:30 No provider procedures requiring assistance completed. rg5 22:48 CT Head C Spine In Process Unspecified. EDMS 03/17 00:07 Awaiting radiology results. rg5 00:12 Provided Education on: POS ER CARE. rg5 00:12 Patient did not have IV access during this emergency room visit. rg5 Administered Medications: No medications were administered Medication: 03/16 22:30 VIS not applicable for this client. rg5 Intake: 03/17 00:13 PO: 0ml; Total: 0ml. rg5 Output: 00:13 Urine: 0ml; Total: 0ml. rg5 Outcome: 03/16 23:27 Patient's length of stay was not longer than 2 hours. rg5 03/17 00:12 Discharge ordered by . kb 00:12 Discharged to home ambulatory, rg5 00:12 Condition: stable 00:19 Discharge instructions given to patient, Instructed on discharge instructions, follow rg5 up and referral plans. Demonstrated understanding of instructions, follow-up care, 00:20 Patient left the ED. rg5 Signatures: Dispatcher [employer] EDShelyl Kaba, CYBER LEGAL ADVISOR-C CYBER LEGAL ADVISOR-Catrachita Sheikh [facility] Austin Regan, RN RN rg5
[2024-03-17 06:16] VITALS: TEMP 98
[2024-03-17 06:18] VITALS: BP 125/75; O2SAT 95
== END 2024-03-17 00:20 | disposition home or self-care (01) ==
LOC: ER 21:47
DX: S09.90XA Unspecified injury of head, initial encounter (principal); M79.642 Pain in left hand; W18.09XA Striking against other object with subsequent fall, initial encounter
CPT/HCPCS: 70450; 72125; 99283

== ENCOUNTER 2024-03-29 22:00 | Emergency (ER) | payer OTHER ==
[2024-03-29] MEDS ORDERED: KETOROLAC 30 MG/ML INJ ONE (22:27)
[2024-03-29] MEDS ORDERED: MORPHINE 4 MG/ML SYR ONE (22:30)
[2024-03-29] MEDS ORDERED: ONDANSETRON 4 MG/2 ML VIAL ONE (22:30)
--- NOTE | 2024-03-29 23:44 | RAD REPORT ---
Clinical Indication: Bed Name: 8. Back pain Comparison: August 05, 2022. TECHNIQUE: Noncontrast helical imaging was performed without oral or IV contrast from the lower abdom en to the symphysis pubis regions. Multiplanar reformations are obtained. Coronal and sagittal reformats were performed and provided as separate series. CT Radiation Dose: DLP = 2675.8 mGy-cm All CT scans at this location are performed using dose optimization techniques as appropriate to perf orm the study. Radiation dose reduction technique was utilized including one or more of the following: Automated exp osure control, adjustment of the mA and/or kV according to patient size and use of iterative reconstruction technique. FINDINGS: This examination is limited for the evaluation of solid organs and vascular structures due to lack of intravenous contrast. BOWEL: The non-contrast opacified small bowel loops in the abdomen and pelvis appear unremarkable. Th e noncontrast opacified colonic loops in the abdomen and pelvis appear unremarkable. APPENDIX: Not well seen on the exam. PERITONEUM AND RETROPERITONEUM: No ascites or free air. No loculated fluid collection is noted. The a bdominal aorta is normal in caliber. LYMPH NODES: Unremarkable. PELVIS: No pelvic mass or adenopathy. The patient is status post hysterectomy. BLADDER: Unremarkable. OSSEOUS STRUCTURES: No acute abnormality seen. No pelvic fractures are noted. Moderate degenerative c hanges are noted in the lower lumbar facets. SOFT TISSUES: Unremarkable. IMPRESSION: No acute abnormality is seen on non-contrast abdomen and pelvis CT. Electronically signed by: Devon Mulligan MD 03/29/2024 11:36 PM [facility] Due to temporary technical issues with the PACS/[employer] reporting system, reports are being barron d by the in-house radiologist without review as a courtesy to ensure prompt reporting the interpreting radiologist is fully responsible for the content of the report. Transcribed Date/Time: 03/29/2024 11:44 PM
--- NOTE | 2024-03-30 00:06 | RAD REPORT ---
Clinical Indication: Bed Name: 8; back pain Comparison: None TECHNIQUE: Sequential trans-axial images were obtained with a multi-detector helical CT. Coronal and sagittal reconstructions were obtained. All CT scans at this location are performed using dose optimization techniques as appropriate to perf orm the study. Radiation dose reduction technique was utilized including one or more of the following: Automated exp osure control, adjustment of the mA and/or kV according to patient size and use of iterative reconstruction technique. CT Radiation Dose DLP 2675.8 mGy-cm FINDINGS: ALIGNMENT AND GENERAL ASSESSMENT: There are 5 nonrib-bearing lumbar vertebral segments.-A convex scol iosis of the lumbar spine is noted. [place] is noted at L2.. The anterior and posterior paraspinal soft tissues are unremarkable. There are no fractures or subluxations of the lumbar spine. There are no pars interarticularis. DISK SPACES AND SOFT TISSUES: MRI has higher sensitivity and specificity for disc and soft tissue dis ease. T12-L1: Mild wedge compression deformity of T12 is noted. The endplates are well-corticated, consiste nt with chronic deformity. No retropulsion is noted. There is approximately 30% anterior vertebral body height loss. No posterior disc bulge is noted. There is no spinal canal stenosis or neural lazaro en narrowing. Mild bilateral facet arthropathy is noted. L1-L2: The disk is unremarkable. Moderate bilateral facet arthropathy is noted. There is no central o r foraminal stenosis. L2-L3: The disk is unremarkable. Moderate bilateral facet arthropathy is noted. There is no central o r foraminal stenosis. L3-L4: Small posterior disc bulge is noted. There is bilateral ligamentum flavum hypertrophy. No spin al canal stenosis is noted. Mild bilateral neural foramen narrowing is noted. Moderate bilateral facet arthropathy is noted. L4-L5: Small posterior disc bulge is noted. Bilateral ligamentum flavum hypertrophy is noted. No spin al canal stenosis is noted. The spinal canal measures 11.8 mm in AP dimension. Minimal bilateral neural foramen narrowing is noted. Moderate facet arthropathy is noted bilaterally. L5-S1: The disk is unremarkable. Moderate bilateral facet arthropathy is noted. There is no central o r foraminal stenosis. If there is further concern, CT myelogram or MRI of the lumbar spine may be performed for complete as sessment. IMPRESSION: 1. No acute bony abnormality of the lumbar spine. 2. Levoconvex scoliosis of the lumbar spine with apex at L2. 3. Moderate degenerative and compensatory changes resulting in arthropathy and neural foramen narrowi ng as noted above. Electronically signed by: Devon Mulligan MD 03/29/2024 11:49 PM [facility] Due to temporary technical issues with the PACS/Crystal IS reporting system, reports are being barron d by the in-house radiologist without review as a courtesy to ensure prompt reporting the interpreting radiologist is fully responsible for the content of the report. Transcribed Date/Time: 03/30/2024 12:06 AM
--- NOTE | 2024-03-30 01:28 | ER ---
Nurse's Notes [facility] Name: Neelam Grove Age: 78 yrs Sex: Female : 1945 Arrival Date: 03/29/2024 Time: 22:00 Bed 8 Private MD: Diagnosis: Low back pain;Degenerative disc disease lumbar section, chronic degenerative spinal arthritis, acute moderate musculoskeletal back pain lumbar spine , .Levoconvex scoliosis of the lumbar spine Presentation: 03/29 22:07 Chief complaint: Patient states: c/o R sided lower back pain exacerbated by movement. al5 patient had a fall on Saturday, was seen for it and was medically cleared. Coronavirus screen: At this time, the client does not indicate any symptoms associated with coronavirus-19. Ebola Screen: No symptoms or risks identified at this time. Initial Sepsis Screen: Does the patient meet any 2 criteria? No. Patient's initial sepsis screen is negative. Does the patient have a suspected source of infection? No. Patient's initial sepsis screen is negative. Risk Assessment: Do you want to hurt yourself or someone else? Patient reports no desire to harm self or others. Onset of symptoms was March 29, 2024. 22:07 Method Of Arrival: EMS: [facility] al5 22:07 Acuity: CHRISTY 3 al5 Triage Assessment: 22:10 General: Appears in no apparent distress. uncomfortable, Behavior is cooperative. Pain: al5 Complains of pain in right low back. EENT: No signs and/or symptoms were reported regarding the EENT system. Neuro: Level of Consciousness is awake, alert, obeys commands, Oriented to person, place, time, situation. Cardiovascular: Capillary refill < 3 seconds Patient's skin is warm and dry. Respiratory: Airway is patent Respiratory effort is even, unlabored, Respiratory pattern is regular, symmetrical. GI: Abdomen is flat, non-distended. : No signs and/or symptoms were reported regarding the genitourinary system. Derm: Skin is intact, Skin is pink, warm \T\ dry. normal. Musculoskeletal: Capillary refill < 3 seconds, Range of motion: intact in all extremities. Historical: - Allergies: 22:09 No Known Allergies; al5 - PMHx: 22:09 depression; insomnia; restless leg syndrome; high cholesterol; al5 - PSHx: 22:09 Tonsillectomy; hysterectomy; al5 22:10 hernia repair; al5 - Immunization history:: Adult Immunizations up to date. - Infectious Disease History:: Denies. - Social history:: Smoking status: unknown. - Family history:: not pertinent. Screenin:15 [facility] ED Fall Risk Assessment (Adult) History of falling in the last 3 months, al5 including since admission Yes- single mechanical fall (1 pt) Confusion or Disorientation No (0 pts) Intoxicated or Sedated No (0 pts) Impaired Gait Yes (1 pt) Mobility Assist Device Used No (0 pt) Altered Elimination No (0 pt) Score/Fall Risk Level 0 - 2 = Low Risk Oriented to surroundings, Maintained a safe environment, Hourly rounding (assess needs \T\ fall precautionary measures) done. Abuse screen: Denies threats or abuse. Denies injuries from another. Nutritional screening: No deficits noted. Tuberculosis screening: No symptoms or risk factors identified. Assessment: 22:14 Reassessment: see triage assessment. Neuro: Level of Consciousness is awake, alert, al5 obeys commands, Oriented to person, place, time, situation. 03/30 01:56 General: Appears in no apparent distress. comfortable, Behavior is calm, cooperative, mt4 appropriate for age. Pain: Complains of pain in back Pain currently is 7 out of 10 on a pain scale. Quality of pain is described as aching, sharp. Respiratory: Airway is patent Respiratory effort is even, unlabored. Musculoskeletal: Capillary refill < 3 seconds, Range of motion: intact in all extremities. Vital Signs: 03/29 22:00 BP 148 / 88; Pulse 54; Pulse Ox 97% on R/A; mt4 22:07 BP 174 / 86; Pulse 62; Resp 16; Temp 97.8; Pulse Ox 98% ; Weight 74.84 kg; Height 5 ft. al5 5 in. ; Pain 6/10; 22:30 BP 140 / 88; Pulse 53; Resp 15; Pulse Ox 93% on R/A; al5 23:00 BP 146 / 91; Pulse 67; Resp 17; Pulse Ox 100% on R/A; al5 23:30 BP 141 / 63; Pulse 53; Resp 14; Pulse Ox 100% on R/A; mt4 11/04 00:00 BP 108 / 67; Pulse 56; Resp 18; Pulse Ox 97% on R/A; al5 00:56 BP 101 / 53; Pulse 53; Resp 17 S; mt4 01:56 BP 110 / 71; Pulse 65; Resp 19; mt4 11 22:07 Body Mass Index 27.46 (74.84 kg, 165.1 cm) al5 22:07 Pain Scale: Adult al5 Nithya Coma Score: 01:56 Eye Response: spontaneous(4). Motor Response: obeys commands(6). Verbal Response: mt4 oriented(5). Total: 15. 20:21 Eye Response: spontaneous(4). Motor Response: obeys commands(6). Verbal Response: sp4 oriented(5). Total: 15. ED Course: 03/29 22:02 Patient arrived in ED. jj6 22:04 Paul Carmichael MD is Attending Physician. sp4 22:06 Lea Parham RN is Primary Nurse. al5 22:08 Triage completed. al5 22:14 Arm band placed on right wrist. Patient placed in the treatment room, on a stretcher. al5 22:15 Patient has correct armband on for positive identification. Bed in low position. Call al5 light in reach. Side rails up X 1. Provided Education on: plan of care. 22:15 No provider procedures requiring assistance completed. Maintain EMS IV. Dressing al5 intact. Good blood return noted. Site clean \T\ dry. Gauge \T\ site: 20G RAC. 23:22 CT Pelvis wo Cont In Process Unspecified. EDMS 23:22 CT Lumbar Spine Wo Con In Process Unspecified. EDMS 11 01:56 Lights dimmed. Verbal reassurance given. Assisted to bathroom. mt4 01:56 IV discontinued, intact, bleeding controlled, No redness/swelling at site. Pressure mt4 dressing applied. Patient maintains SpO2 saturation greater than 95% on room air. Administered Medications: 03/29 22:43 Drug: morphine IVP or IV 4 mg IVP once over 4 mins Route: IVP; Infused Over: 4 mins; al5 Site: right antecubital; 03/30 01:38 Follow up: Response: No adverse reaction mt4 03/29 22:43 Drug: Ketorolac IVP 30 mg IVP once Route: IVP; Site: right antecubital; al5 03/30 01:38 Follow up: Response: No adverse reaction mt4 03/29 22:43 Drug: Ondansetron IVP 4 mg IVP once; over 2 minutes Route: IVP; Site: right antecubital;al5 03/30 01:38 Follow up: Response: No adverse reaction mt4 01:46 Drug: Acetaminophen-Codeine PO (300 mg-30 mg) 2 tabs PO once; RASS on ADMIN: Combtv4, mt4 Very Agttd3, Agttd2, Rstlss1, AlertClm0, Drwsy-1, Lt Sdtn-2, Mod Sdtn-3, Dp Sdtn-4, UnArsble-5 Route: PO; 01:56 Follow up: Response: No adverse reaction mt4 01:46 Drug: Methocarbamol PO 1500 mg PO once Route: PO; mt4 01:56 Follow up: Response: No adverse reaction mt4 Medication: 03/29 22:15 VIS not applicable for this client. al5 Outcome: 03/30 01:28 Discharge ordered by . sp4 01:56 Condition: stable mt4 01:56 Discharge instructions given to patient, family, Instructed on discharge instructions, follow up and referral plans. medication usage, Demonstrated understanding of instructions, follow-up care, medications, Prescriptions given X 3, 01:59 Discharged to home ambulatory, mt4 01:59 Patient left the ED. mt4 Signatures: Dispatcher [employer] EDÁngela Johnsonj6 Paul Carmichael MD MD sp4 Jose G Sharpe RN RN mt4 Lea Parham RN RN al5
--- NOTE | 2024-03-30 01:28 | EDPHYS ---
Physician Documentation [facility] Name: Neelam Grove Age: 78 yrs Sex: Female : 1945 Arrival Date: 03/29/2024 Time: 22:00 Bed 8 Private MD: ED Physician Paul Carmichael HPI: 03/29 22:05 This 78 yrs old Female presents to ER via Unassigned with complaints of Back sp4 Pain. 03/30 20:21 Patient presents with complaint of lower back pain secondary to scoliosis the back pain sp4 has gotten worse over the past 2 weeks and today became intolerable. . Historical: - Allergies: 03/29 22:09 No Known Allergies; al5 - PMHx: 22:09 depression; insomnia; restless leg syndrome; high cholesterol; al5 - PSHx: 22:09 Tonsillectomy; hysterectomy; al5 22:10 hernia repair; al5 - Immunization history:: Adult Immunizations up to date. - Infectious Disease History:: Denies. - Social history:: Smoking status: unknown. - Family history:: not pertinent. ROS: 03/30 20:21 Constitutional: Negative for fever, chills, and weight loss, positive for lower back sp4 pain in the right lower back location. All other systems are negative, Exam: 20:21 Constitutional: This is a well developed, well nourished patient who is awake, alert, sp4 and in no acute distress. Head/Face: Normocephalic, atraumatic. Eyes: Pupils equal round and reactive to light, extra-ocular motions intact. Lids and lashes normal. Conjunctiva and sclera are not injected. Cornea within normal limits. Periorbital areas with no swelling, redness, or edema. ENT: Nares patent. No nasal discharge, no septal abnormalities noted. Tympanic membranes are normal and external auditory canals are clear. Oropharynx with no redness, swelling, or masses, exudates, or evidence of obstruction, uvula midline. Mucous membranes moist. Neck: Trachea midline, no thyromegaly or masses palpated, and no cervical lymphadenopathy. Supple, full range of motion without nuchal rigidity, or vertebral point tenderness. Chest/axilla: Normal chest wall appearance and motion. Nontender with no deformity. No lesions are appreciated. Cardiovascular: Regular rate and rhythm with a normal S1 and S2. No gallops, murmurs, or rubs. Normal PMI, no JVD. No pulse deficits. Respiratory: Lungs have equal breath sounds bilaterally, clear to auscultation and percussion. No rales, rhonchi or wheezes noted. No increased work of breathing, no retractions or nasal flaring. Abdomen/GI: Soft, with normal bowel sounds. No distension or tympany. No guarding or rebound. No evidence of tenderness throughout. Back: No spinal tenderness. No costovertebral tenderness. Skin: Warm, dry with normal turgor. Normal color with no rashes, no lesions, and no evidence of cellulitis. MS/ Extremity: Pulses equal, no cyanosis. Neurovascular intact. Full, normal range of motion. Neuro: Awake and alert, GCS 15, oriented to person, place, time, and situation. Cranial nerves II-XII grossly intact. Motor strength 5/5 in all extremities. Sensory grossly intact. Psych: Awake, alert, with orientation to person, place and time. Behavior, mood, and affect are within normal limits Vital Signs: 03/29 22:00 BP 148 / 88; Pulse 54; Pulse Ox 97% on R/A; mt4 22:07 BP 174 / 86; Pulse 62; Resp 16; Temp 97.8; Pulse Ox 98% ; Weight 74.84 kg; Height 5 ft. al5 5 in. ; Pain 6/10; 22:30 BP 140 / 88; Pulse 53; Resp 15; Pulse Ox 93% on R/A; al5 23:00 BP 146 / 91; Pulse 67; Resp 17; Pulse Ox 100% on R/A; al5 23:30 BP 141 / 63; Pulse 53; Resp 14; Pulse Ox 100% on R/A; mt4 03/30 00:00 BP 108 / 67; Pulse 56; Resp 18; Pulse Ox 97% on R/A; al5 00:56 BP 101 / 53; Pulse 53; Resp 17 S; mt4 01:56 BP 110 / 71; Pulse 65; Resp 19; mt4 03/29 22:07 Body Mass Index 27.46 (74.84 kg, 165.1 cm) al5 22:07 Pain Scale: Adult al5 [place] Coma Score: 01:56 Eye Response: spontaneous(4). Motor Response: obeys commands(6). Verbal Response: mt4 oriented(5). Total: 15. 20:21 Eye Response: spontaneous(4). Motor Response: obeys commands(6). Verbal Response: sp4 oriented(5). Total: 15. MDM: 03/29 22:15 Medical Screening Exam initiated sp4 03/30 01:02 ED course: Clinical Indication: Bed Name: 8. Back pain Comparison: August 05, 2022. sp4 TECHNIQUE: Noncontrast helical imaging was performed without oral or IV contrast from the lower abdomen to the symphysis pubis regions. Multiplanar reformations are obtained. Coronal and sagittal reformats were performed and provided as separate series. CT Radiation Dose: DLP = 2675.8 mGy-cm All CT scans at this location are performed using dose optimization techniques as appropriate to perform the study. Radiation dose reduction technique was utilized including one or more of the following: Automated exposure control, adjustment of the mA and/or kV according to patient size and use of iterative reconstruction technique. FINDINGS: This examination is limited for the evaluation of solid organs and vascular structures due to lack of intravenous contrast. BOWEL: The non-contrast opacified small bowel loops in the abdomen and pelvis appear unremarkable. The noncontrast opacified colonic loops in the abdomen and pelvis appear unremarkable. APPENDIX: Not well seen on the exam. PERITONEUM AND RETROPERITONEUM: No ascites or free air. No loculated fluid collection is noted. The abdominal aorta is normal in caliber. LYMPH NODES: Unremarkable. PELVIS: No pelvic mass or adenopathy. The patient is status post hysterectomy. BLADDER: Unremarkable. OSSEOUS STRUCTURES: No acute abnormality seen. No pelvic fractures are noted. Moderate degenerative changes are noted in the lower lumbar facets. SOFT TISSUES: Unremarkable. IMPRESSION: No acute abnormality is seen on non-contrast abdomen and pelvis CT.. ED course: Clinical Indication: Bed Name: 8; back pain Comparison: None TECHNIQUE: Sequential trans-axial images were obtained with a multi-detector helical CT. Coronal and sagittal reconstructions were obtained. All CT scans at this location are performed using dose optimization techniques as appropriate to perform the study. Radiation dose reduction technique was utilized including one or more of the following: Automated exposure control, adjustment of the mA and/or kV according to patient size and use of iterative reconstruction technique. CT Radiation Dose DLP 2675.8 mGy-cm FINDINGS: ALIGNMENTAND GENERAL ASSESSMENT: There are 5 nonrib-bearing lumbar vertebral segments.-A convex scoliosis of the lumbar spine is noted. [place] is noted at L2.. The anterior and posterior paraspinal soft tissues are unremarkable. There are no fractures or subluxations of the lumbar spine. There are no pars interarticularis. DISK SPACES AND SOFT TISSUES: MRI has higher sensitivity and specificity for disc and soft tissue disease. T12-L1: Mild wedge compression deformity of T12 is noted. The endplates are well-corticated, consistent with chronic deformity. No retropulsion is noted. There is approximately 30% anterior vertebral body height loss. No posterior disc bulge is noted. There is no spinal canal stenosis or neural foramen narrowing. Mild bilateral facet arthropathy is noted. L1-L2: The disk is unremarkable. Moderate bilateral facet arthropathy is noted. There is no central or foraminal stenosis. L2-L3: The disk is unremarkable. Moderate bilateral facet arthropathy is noted. There is no central or foraminal stenosis. L3-L4: Small posterior disc bulge is noted. There is bilateral ligamentum flavum hypertrophy. No spinal canal stenosis is noted. Mild bilateral neural foramen narrowing is noted. Moderate bilateral facet arthropathy is noted. L4-L5: Small posterior disc bulge is noted. Bilateral ligamentum flavum hypertrophy is noted. No spinal canal stenosis is noted. The spinal canal measures 11.8 mm inAP dimension. Minimal bilateral neural foramen narrowing is noted. Moderate facet arthropathy is noted bilaterally. L5-S1: The disk is unremarkable. Moderate bilateral facet arthropathy is noted. There is no central or foraminal stenosis. If there is further concern, CT myelogram or MRI of the lumbar spine may be performed for complete assessment. IMPRESSION: 1. No acute bony abnormality of the lumbar spine. 2. Levoconvex scoliosis of the lumbar spine with apex at L2. 3. Moderate degenerative and compensatory changes resulting in arthropathy and neural foramen narrowing as noted above. . 20:21 Differential diagnosis: arthritis, Basilar Pneumonia Joint Injury Osteoporosis Peptic sp4 Ulcer. Consideration of Admission/Observation Escalation of care including admission/observation considered. ED course: Based on CT patient has moderate to severe levoconvex scoliosis of the L-spine with moderate to severe degenerative and consistent story changes resulting in arthropathy and neuroforaminal narrowing overall patient is neurologically intact and stable for discharge home with as needed pain medications. Advised to follow-up with neurosurgeon Dr. Anjel Bynum in [place]. . 20:23 Data reviewed: vital signs, nurses notes, radiologic studies, CT scan. sp4 03/29 22:15 Order name: CT Pelvis wo Cont sp4 03/29 22:15 Order name: CT Lumbar Spine Wo Con sp4 03/29 22:05 Order name: Saline Lock; Complete Time: 22:07 sp4 Administered Medications: 03/29 22:43 Drug: morphine IVP or IV 4 mg IVP once over 4 mins Route: IVP; Infused Over: 4 mins; al5 Site: right antecubital; 03/30 01:38 Follow up: Response: No adverse reaction mt4 03/29 22:43 Drug: Ketorolac IVP 30 mg IVP once Route: IVP; Site: right antecubital; al5 03/30 01:38 Follow up: Response: No adverse reaction mt4 03/29 22:43 Drug: Ondansetron IVP 4 mg IVP once; over 2 minutes Route: IVP; Site: right antecubital;al5 03/30 01:38 Follow up: Response: No adverse reaction mt4 01:46 Drug: Acetaminophen-Codeine PO (300 mg-30 mg) 2 tabs PO once; RASS on ADMIN: Combtv4, mt4 Very Agttd3, Agttd2, Rstlss1, AlertClm0, Drwsy-1, Lt Sdtn-2, Mod Sdtn-3, Dp Sdtn-4, UnArsble-5 Route: PO; 01:56 Follow up: Response: No adverse reaction mt4 01:46 Drug: Methocarbamol PO 1500 mg PO once Route: PO; mt4 01:56 Follow up: Response: No adverse reaction mt4 Disposition Summary: 03/30/24 01:28 Discharge Ordered Notes: Location: Home sp4 Problem: new sp4 Symptoms: have improved sp4 Condition: Stable sp4 Diagnosis - Low back pain sp4 - Degenerative disc disease lumbar section, chronic degenerative spinal arthritis, sp4 acute moderate musculoskeletal back pain lumbar spine , .Levoconvex scoliosis of the lumbar spine Followup: sp4 - With: Private Physician - When: 10 - 14 days - Reason: Recheck today's complaints Discharge Instructions: - Discharge Summary Sheet sp4 - Acute Back Pain, Adult sp4 Forms: - Patient Portal Instructions sp4 Prescriptions: - acetaminophen-codeine 300-60 mg Oral tablet - take 1 tablet ORAL route every 8 hours PRN pain; 30 tablet; Refills: 0, Product sp4 Selection Permitted - Ibuprofen 800 mg Oral Tablet - take 1 tablet ORAL route every 8 hours As needed take with food; 30 tablet; sp4 Refills: 0, Product Selection Permitted - methocarbamol 750 mg Oral tablet - take 2 tablets ORAL route every 8 hours for 3 days PRN back pain; 60 tablet; sp4 Refills: 0, Product Selection Permitted Signatures: Dispatcher [employer] EDMS Paul Carmichael MD MD sp4 Jose G Sharpe RN RN mt4 Lea Parham RN RN al5 Corrections: (The following items were deleted from the chart) 03/29 22:15 22:15 Pelvis Wo [id number].RAD.BRZ ordered. EDMD EDMS
[2024-03-30] MEDS ORDERED: methocarbamoL 500 MG TAB ONE (01:37)
[2024-03-30] MEDS ORDERED: CODEINE 30MG/APAP 300MG TAB ONE ×2 (01:37→01:40)
[2024-03-30 02:15] VITALS: TEMP 97.8
[2024-03-30 02:20] VITALS: O2SAT 97
[2024-03-30 02:22] VITALS: BP 110/71
== END 2024-03-30 01:59 | disposition home or self-care (01) ==
LOC: ER 22:00
DX: M51.369 Other intervertebral disc degeneration, lumbar region without mention of lumbar back pain or lower extremity pain (principal); M47.817 Spondylosis without myelopathy or radiculopathy, lumbosacral region; M41.86 Other forms of scoliosis, lumbar region
CPT/HCPCS: 72131; 72192; J2405; 96374; 96375; 99284